=== PATIENT | male | born 1975 | race Asian ===

== ENCOUNTER 2017-09-13 14:07 | Emergency (ER) | payer OTHER ==
[~2017-09-13] VITALS: Ht 177.8 cm; Wt 122.5 kg
[~2017-09-13 14:07] MED LIST: ADIPEX-P37.5 M1 OR; HYDR25TA60 PO; [UNRECOGNIZED DRUG - OTHER] RE
[2017-09-13 14:21] VITALS: BP 156/97; TEMP 97.6
== END 2017-09-13 14:34 | disposition home or self-care (01) ==
LOC: ED 14:07
DX: K02.9 Dental caries, unspecified (principal)

== ENCOUNTER 2017-10-20 08:16 | Outpatient (CLI) | payer OTHER | END 2017-10-20 08:19 | disposition short-term general hospital (02) | LOC: AMB 08:16 | DX: M25.512 Pain in left shoulder (principal); M25.511 Pain in right shoulder; V49.49XA Driver injured in collision with other motor vehicles in traffic accident, initial encounter; Y92.488 Other paved roadways as the place of occurrence of the external cause | CPT/HCPCS: A0425; A0429 ==

== ENCOUNTER 2017-10-20 08:19 | Emergency (ER) | payer OTHER ==
[~2017-10-20] VITALS: Ht 177.8 cm; Wt 122.5 kg
[2017-10-20 10:00] VITALS: BP 156/72; TEMP 98.3
== END 2017-10-20 10:09 | disposition home or self-care (01) ==
LOC: ED 08:19
DX: I10 Essential (primary) hypertension (principal); S13.4XXA Sprain of ligaments of cervical spine, initial encounter; V63.5XXA Driver of heavy transport vehicle injured in collision with car, pick-up truck or van in traffic accident, initial encounter
CPT/HCPCS: 96374; 96375; 99284; J0360; J1170

== ENCOUNTER 2018-03-28 08:35 | Outpatient (CLI) | payer OTHER ==
[2018-03-28 09:01] LABS: PLATELET COUNT 235 K/uL (142-355)
[2018-03-28 09:37] LABS: POTASSIUM 3.6 mmol/L (3.6-5.2)
== END 2018-03-28 19:31 | disposition home or self-care (01) ==
LOC: LABW 08:35
PROVIDERS: Emergency Medicine
DX: I10 Essential (primary) hypertension (principal); E66.8 Other obesity; G47.09 Other insomnia; E11.69 Type 2 diabetes mellitus with other specified complication
CPT/HCPCS: 36415; 80053; 80061; 81000; 84153; 84403; 84443; 85027

== ENCOUNTER 2018-06-02 15:48 | Outpatient (CLI) | payer OTHER | END 2018-06-02 23:34 | disposition home or self-care (01) | LOC: LABW 15:48 | DX: N52.8 Other male erectile dysfunction (principal); E29.1 Testicular hypofunction; R53.83 Other fatigue | CPT/HCPCS: 36415; 82607; 84153; 84403 ==

== ENCOUNTER 2018-07-09 12:15 | Outpatient (CLI) | payer OTHER | END 2018-07-09 19:40 | disposition home or self-care (01) | LOC: LABW 12:15 | DX: N52.8 Other male erectile dysfunction (principal); E29.1 Testicular hypofunction | CPT/HCPCS: 36415; 82607; 84153; 84403 ==

== ENCOUNTER 2018-12-10 11:38 | Outpatient (CLI) | payer OTHER ==
[2018-12-10 13:24] LABS: PLATELET COUNT 213 K/uL (142-355)
[2018-12-10 13:41] LABS: POTASSIUM 3.8 mmol/L (3.6-5.2)
== END 2018-12-10 20:25 | disposition home or self-care (01) ==
LOC: LABW 11:38
PROVIDERS: Emergency Medicine
DX: E29.1 Testicular hypofunction (principal); E66.01 Morbid (severe) obesity due to excess calories; E11.8 Type 2 diabetes mellitus with unspecified complications; E78.5 Hyperlipidemia, unspecified
CPT/HCPCS: 36415; 80053; 80061; 82672; 84403; 84439; 84443; 85027

== ENCOUNTER 2019-02-03 17:48 | Outpatient (CLI) | payer OTHER ==
[2019-02-03 18:24] LABS: PLATELET COUNT 228 K/uL (142-355)
== END 2019-02-03 20:24 | disposition home or self-care (01) ==
LOC: LABW 17:48
PROVIDERS: Nurse Practitioner
DX: E29.1 Testicular hypofunction (principal); E34.9 Endocrine disorder, unspecified; R53.83 Other fatigue; E55.9 Vitamin D deficiency, unspecified; E53.8 Deficiency of other specified B group vitamins
CPT/HCPCS: 36415; 80061; 82306; 82607; 82670; 84403; 84443; 84481; 85027

== ENCOUNTER 2020-01-18 07:28 | Outpatient (CLI) | payer OTHER ==
[2020-01-18 08:03] LABS: PLATELET COUNT 195 K/uL (142-355)
== END 2020-01-18 19:17 | disposition home or self-care (01) ==
LOC: LABW 07:28
PROVIDERS: Internal Medicine
DX: E29.1 Testicular hypofunction (principal); E11.9 Type 2 diabetes mellitus without complications
CPT/HCPCS: 36415; 80053; 80061; 81000; 82043; 82570; 82672; 83036; 83519; 84402; 84403; 84439; 84443; 85027

== ENCOUNTER 2022-06-11 19:54 | Emergency (ER) | payer BC ==
[~2022-06-11] VITALS: Ht 177.8 cm; Wt 113.4 kg
[2022-06-11 21:25] VITALS: BP 124/80; TEMP 98.9
== END 2022-06-11 21:25 | disposition home or self-care (01) ==
LOC: ED 19:54
DX: S06.0X0A Concussion without loss of consciousness, initial encounter (principal); Y04.2XXA Assault by strike against or bumped into by another person, initial encounter; Y92.148 Other place in prison as the place of occurrence of the external cause
CPT/HCPCS: 99283